=== PATIENT | male | born 2000 | race African-American/Black ===

== ENCOUNTER 2025-05-14 13:43 | Emergency (ER) | payer OTHER ==
[~2025-05-14] VITALS: Ht 177.8 cm; Wt 80.0 kg
[2025-05-14 13:47] VITALS: O2SAT 99
[2025-05-14] MEDS: ONDANSETRON HCL 4MG/2ML INJ IV STA (14:37)
[2025-05-14] MEDS: MORPHINE SULFATE 4 MG/ML INJ (FOR IV/IM USE) IV STA (14:38)
[2025-05-14 14:43] LABS: BASOPHILS % 0.9 % (0.0-2.0); EOSINOPHILS % 3.1 % (0.0-5.0); HEMATOCRIT. 49.2 % (42.0-52.0); HEMOGLOBIN. 16.0 g/dL (14.0-18.0); LYMPHOCYTES % 22.4 % (20.0-50.0); MEAN PLATELET VOLUME 8.3 fl (7.4-10.4); MONOCYTES % 6.3 % (2.0-8.0); NEUTROPHILS % 67.3 % (40.0-76.0); PLATELET 248 x1000/uL (130-400); RED BLOOD CELL COUNT 5.55 mill/uL (4.7-6.1); RED CELL DISTRIBUTION WIDTH 13.1 % (11.6-14.6)
[2025-05-14 15:02] LABS: TROPONIN I HIGH SENSITIVITY < 4 ng/L (3.0-53)
[2025-05-14 15:03] LABS: CREATININE 1.1 mg/dL (0.6-1.3); UREA NITROGEN BLOOD 11 mg/dL (9-23)
[2025-05-14 15:04] LABS: ETHANOL BLOOD < 10 mg/dL (<10)
[2025-05-14 17:45] VITALS: BP 123/76; PULSE 81; RESP 16; TEMP 36.6; O2SAT 97
== END 2025-05-14 17:57 | disposition home or self-care (01) ==
LOC: ER 13:43
DX: R56.9 Unspecified convulsions (principal)
CPT/HCPCS: 80048; 80320; 85025; 84484; 36415; 70450; 96374; 96375; 99285; J2405; J2270; G0480